=== PATIENT | male | born 1995 | race Caucasian/White ===

== ENCOUNTER 2022-11-06 11:10 | Emergency (ER) | payer OTHER, SELFPAY ==
[2022-11-06] VITALS (8 sets, daily range): BP systolic 128–141; BP diastolic 84–107; PULSE 61–101; RESP 18; TEMP 37.1; O2SAT 95–99
--- NOTE | 2022-11-06 11:45 | PC.NURSE ---
Pt had a large episode of emesis and states he feels better and thinks he was able to bring up whatever may have been stuck.
--- NOTE | 2022-11-06 12:55 | ED.GENADULT ---
HPI - General Adult General Chief complaint: Skin/Abscess/Foreign Body Stated complaint: CHOKING INCIDENT Time Seen by Provider: 11/06/22 12:05 Source: patient Mode of arrival: ambulatory Limitations: no limitations History of Present Illness HPI narrative: 26-year-old here with complaints of choking episode. Patient states that he was eating beef sandwich after his first bite the patient states he was choking and he thinks the food is lodged in the mid esophagus. Patient states that he threw up twice with no relief at the time he came to the ER he was still feeling the same threw up again in the ER he states that he is feeling much better. Patient states that he had this problem for quite some time. He denied any shortness of breath or chest pain. Onset (ago): hour(s) (1) Location: chest Radiation: non-radiation Severity: moderate Quality: constant Pain Consistency: constant Exacerbating factors: none Associated symptoms: denies other symptoms Treatments prior to arrival: none Related Data Allergies Allergy/AdvReac Type Severity Reaction Status Date / Time No Known Allergies Allergy Unknown Verified 09/25/18 15:45 Review of Systems Review of Systems: All systems reviewed & are unremarkable except as noted in HPI and below Constitutional: Constitutional: Reports no additional constitutional complaints Eyes: Eyes: Reports no additional eye complaints ENT: Reports system reviewed and no additional complaints, except as documented Cardiovascular: Cardiovascular: Reports no additional cardiovascular complaints Respiratory: Respiratory: Reports no additional respiratory complaints Gastrointestinal: Gastrointestinal: Reports as per HPI Musculoskeletal: Musculoskeletal: Reports no additional musculoskeletal complaints Integumentary/Breasts: Skin/Breast: Reports system reviewed and no additional complaints, except as docu Exam Narrative: GENERAL: Well-appearing, well-nourished, and in no acute distress. HEAD: Normocephalic, atraumatic. EYES: PERRLA and EOMI.. NECK: Supple. CHEST: Clear to auscultation. No respiratory distress. HEART: Regular rate and rhythm. No murmur heard. Normal peripheral pulses. ABDOMEN: Soft, nontender, nondistended, normal active bowel sounds. EXTREMITIES: Normal range of motion. No edema. SKIN: Warm, dry, no rash. NEURO: No focal deficits. Alert and oriented x3. PSYCH: Normal mood and affect. Course Course Emergency Course: By the time I saw the patient he states his symptoms have much resolved and gave him ice chips with some water he was able to swallow without any difficulty. I recommended him to follow-up with the GI for possible endoscopy Vital Signs Vital signs: Vital Signs Temperature 37.1 C 11/06/22 11:11 Pulse Rate 101 H 11/06/22 11:11 Respiratory Rate 18 11/06/22 11:11 Blood Pressure 130/96 H 11/06/22 11:11 Pulse Oximetry 99 11/06/22 11:11 Oxygen Delivery Room Air 11/06/22 11:11 Temperature 37.1 C 11/06/22 11:11 Pulse Rate 61 11/06/22 13:14 Respiratory Rate 18 11/06/22 13:14 Blood Pressure 129/88 11/06/22 13:14 Pulse Oximetry 97 11/06/22 13:14 Oxygen Delivery Room Air 11/06/22 11:11 Medical Decision Making Vital Signs Vital Signs: Vital Signs Temperature 37.1 C 11/06/22 11:11 Pulse Rate 101 H 11/06/22 11:11 Respiratory Rate 18 11/06/22 11:11 Blood Pressure 130/96 H 11/06/22 11:11 Pulse Oximetry 99 11/06/22 11:11 Oxygen Delivery Room Air 11/06/22 11:11 Temperature 37.1 C 11/06/22 11:11 Pulse Rate 61 11/06/22 13:14 Respiratory Rate 18 11/06/22 13:14 Blood Pressure 129/88 11/06/22 13:14 Pulse Oximetry 97 11/06/22 13:14 Oxygen Delivery Room Air 11/06/22 11:11 Discharge Plan Discharge Clinical Impression: Food impaction of esophagus Qualifiers: Encounter type: initial encounter Qualified Code(s): T18.128A - Food in esophagus causing other injury, initial encoun
== END 2022-11-06 13:15 | disposition home or self-care (01) ==
PROVIDERS: Emergency Provider Family Medicine
DX: T18.128A Food in esophagus causing other injury, initial encounter (principal)
CPT/HCPCS: 99281